=== PATIENT | male | born 1940 | race Caucasian/White ===

== ENCOUNTER → 2017-04-26 | Outpatient (CLI) | payer MEDICARE ==
[2017-04-26 13:33] VITALS: BP 98/60
== END | disposition home or self-care (01) ==
LOC: SRCNTR 12:53
PROVIDERS: ATTEND Internal Medicine
DX: J44.9 Chronic obstructive pulmonary disease, unspecified (principal); I10 Essential (primary) hypertension; E78.5 Hyperlipidemia, unspecified; F17.200 Nicotine dependence, unspecified, uncomplicated; Z99.81 Dependence on supplemental oxygen
CPT/HCPCS: G0463

== ENCOUNTER → 2017-05-05 | Outpatient (CLI) | payer MEDICARE, OTHER | END | disposition home or self-care (01) | LOC: MSR 11:07 | PROVIDERS: ATTEND Internal Medicine | DX: J44.9 Chronic obstructive pulmonary disease, unspecified (principal); I28.8 Other diseases of pulmonary vessels; I70.0 Atherosclerosis of aorta | CPT/HCPCS: 71250; 94010; 94726; 94727; 94729 ==

== ENCOUNTER → 2017-08-06 | Outpatient (CLI) | payer MEDICARE, OTHER ==
[2017-08-06 15:42] VITALS: BP 134/64
== END | disposition home or self-care (01) ==
LOC: SRCNTR 13:50
PROVIDERS: ATTEND Internal Medicine
DX: J44.9 Chronic obstructive pulmonary disease, unspecified (principal); I10 Essential (primary) hypertension; E78.5 Hyperlipidemia, unspecified; Z87.891 Personal history of nicotine dependence
CPT/HCPCS: G0463

== ENCOUNTER 2018-01-23 15:25 | Emergency (ER) | payer MEDICARE, OTHER ==
[~2018-01-23] VITALS: Ht 185.4 cm; Wt 79.5 kg
[2018-01-23] MEDS ORDERED: FURO40I IM (15:41)
[2018-01-23] MEDS ORDERED: ALEN10 PO (15:41)
[2018-01-23] MEDS ORDERED: CITA10TA68 PO (15:41)
[2018-01-23] MEDS ORDERED: ASPI-556 PO (15:41)
[2018-01-23] MEDS ORDERED: METO25XL PO (15:41)
[2018-01-23] MEDS ORDERED: FAMO20 PO (15:41)
[2018-01-23] MEDS ORDERED: FURO20 PO (16:35)
[2018-01-23 16:44] VITALS: BP 145/61
[2018-01-23] MEDS ORDERED: BACITRACIN 0.9 GM PACKET OINTMENT TP ONE (16:45)
[2018-01-23] MEDS ORDERED: LIDOCAINE 2% 5 ML JELLY TP ONE (16:45)
== END 2018-01-23 17:27 | disposition home or self-care (01) ==
LOC: EMS 15:26
DX: S41.111D Laceration without foreign body of right upper arm, subsequent encounter (principal); S51.812D Laceration without foreign body of left forearm, subsequent encounter; I10 Essential (primary) hypertension; J44.9 Chronic obstructive pulmonary disease, unspecified; Z79.82 Long term (current) use of aspirin; Z88.1 Allergy status to other antibiotic agents; Y04.0XXD Assault by unarmed brawl or fight, subsequent encounter

== ENCOUNTER → 2019-05-16 | Outpatient (CLI) | payer MEDICARE, OTHER ==
[~2019-05-16] MED LIST: ALEN10TA26 PO; ASPI-556 PO; CILO100T PO; CITA10TA68 PO; DILT180C89 PO; FAMO20 PO; FERR-89 PO; FURO20 PO; METO25XL PO; ROSU20TA23 PO
== END | disposition home or self-care (01) ==
LOC: SRCNTR 13:23
PROVIDERS: ATTEND Internal Medicine
DX: J44.9 Chronic obstructive pulmonary disease, unspecified (principal); I10 Essential (primary) hypertension; E78.5 Hyperlipidemia, unspecified; F17.200 Nicotine dependence, unspecified, uncomplicated
CPT/HCPCS: G0463